=== PATIENT | male | born 1960 | race Caucasian/White ===

== ENCOUNTER 2019-05-31 12:08 | Emergency (ER) | payer BC ==
[2019-05-31 12:21] VITALS: TEMP 97.9
[2019-05-31] MEDS ORDERED: SODIUM CHLORIDE 0.9% 1,000 ML IV STA (12:36)
[2019-05-31] MEDS ORDERED: MECLIZINE 12.5 MG TAB PO STA (12:38)
--- NOTE | 2019-05-31 12:44 | ED ---
Dizziness HPI - General Chief Complaint: Dizziness Stated Complaint: dizziness-sent by [facility] Time Seen by Provider: 05/31/19 12:22 Source: patient, RN notes reviewed Mode of arrival: ambulatory Limitations: no limitations - History of Present Illness Initial Comments: This is a 58-year-old male who states that he onset yesterday around 9 AM dizziness. He states he ONLY WITH A WORK FELT LIGHTHEADED AND WOOZY AND DIZZY INTERMITTENTLY EVER SINCE HIS DIZZY WHEN HE GETS UP FROM A SITTING POSITION NO OVERT DIZZINESS WITH MOVEMENT OF HIS HEAD OR EYES. HE DOES HAVE A HISTORY OF RECENT UPPER RESPIRATORY CONGESTION AND HAS SOME NAUSEA HE JUST GENERALLY DOES NOT FEEL WELL. MD Complaint: dizziness, lightheadedness, near syncope - Related Data Previous Rx's Medication Instructions Recorded Meclizine [Antivert] 25 mg PO TID #20 tab 05/31/19 Allergies Allergy/AdvReac Type Severity Reaction Status Date / Time poison raciel extract Allergy Rash/Hives Verified 05/31/19 12:37 strawberry Allergy Rash/Hives Verified 05/31/19 12:37 hydrocodone AdvReac Confusion Verified 05/31/19 12:37 Review of Systems ROS Statement: Those systems with pertinent positive or pertinent negative responses have been documented in the HPI. ROS Other: All systems not noted in ROS Statement are negative. Past Medical History Past Medical History: No Reported History History of Any Multi-Drug Resistant Organisms: None Reported Past Surgical History: No Surgical Hx Reported, Orthopedic Surgery Additional Past Surgical History / Comment(s): elbow Past Psychological History: No Psychological Hx Reported Smoking Status: Never smoker Past Alcohol Use History: None Reported Past Drug Use History: None Reported General Exam - General Exam Comments Initial Comments: This is a well-developed well-nourished awake alert oriented times 3 male Limitations: no limitations General appearance: alert, in no apparent distress Head exam: Present: atraumatic, normocephalic, normal inspection Eye exam: Present: normal appearance, PERRL, EOMI. Absent: scleral icterus, conjunctival injection, periorbital swelling ENT exam: Present: mucous membranes moist, TM's normal bilaterally, other (Boggy congested nasal mucosa) Neck exam: Present: normal inspection, full ROM, other (No stridor JVD or bruits). Absent: tenderness, meningismus, lymphadenopathy Respiratory exam: Present: normal lung sounds bilaterally. Absent: respiratory distress, wheezes, rales, rhonchi, stridor Cardiovascular Exam: Present: regular rate, normal rhythm, normal heart sounds. Absent: systolic murmur, diastolic murmur, rubs, gallop, clicks GI/Abdominal exam: Present: soft, normal bowel sounds. Absent: distended, tenderness, guarding, rebound, rigid Extremities exam: Present: normal inspection, full ROM, normal capillary refill. Absent: tenderness, pedal edema, joint swelling, calf tenderness Back exam: Present: normal inspection Neurological exam: Present: alert, oriented X3, CN II-XII intact Psychiatric exam: Present: normal affect, normal mood Skin exam: Present: warm, dry, intact, normal color. Absent: rash Course Vital Signs 05/31/19 05/31/19 12:17 13:06 Temperature 97.9 F Pulse Rate 61 Pulse Rate [ 58 L Right Sitting Pulse Oximetery ] Pulse Rate [ 72 Right Standing Pulse Oximetery ] Pulse Rate [ 56 L Right Supine Pulse Oximetery ] Respiratory 18 Rate Blood Pressure 131/90 Blood Pressure 141/91 [Right Arm Sitting] Blood Pressure 136/99 [Right Arm Standing] Blood Pressure 136/88 [Right Arm Supine] O2 Sat by Pulse 100 Oximetry EKG Findings - EKG Results: EKG: interpreted by MARCUS, sinus rhythm (Says bradycardia 54 AR interval 134, QRS 72 QTC 436/413 this is compared to one done on 11/08/[address] Matthews's office.) Medical Decision Making - Medical Decision Making Patient initially much improved this time. I did discuss findings with him the presentation consistent with benign positional vertigo. 3 place on appropriate medication - Lab Data Result diagrams: 05/31/19 12:54 05/31/19 12:54 Lab Results 05/31/19 05/31/19 05/31/19 Range/Units 12:54 12:54 12:54 WBC 5.2 (3.8-10.6) k/uL RBC 4.96 (4.30-5.90) m/uL Hgb 15.7 (13.0-17.5) gm/dL Hct 45.6 (39.0-53.0) % MCV 92.0 (80.0-100.0) fL MCH 31.8 (25.0-35.0) pg MCHC 34.5 (31.0-37.0) g/dL RDW 13.0 (11.5-15.5) % Plt Count 277 (150-450) k/uL Neutrophils % 69 % Lymphocytes % 22 % Monocytes % 5 % Eosinophils % 2 % Basophils % 1 % Neutrophils # 3.6 (1.3-7.7) k/uL Lymphocytes # 1.1 (1.0-4.8) k/uL Monocytes # 0.2 (0-1.0) k/uL Eosinophils # 0.1 (0-0.7) k/uL Basophils # 0.0 (0-0.2) k/uL Sodium 142 (137-145) mmol/L Potassium 4.2 (3.5-5.1) mmol/L Chloride 104 (98-107) mmol/L Carbon Dioxide 30 (22-30) mmol/L Anion Gap 8 mmol/L BUN 16 (9-20) mg/dL Creatinine 0.94 (0.66-1.25) mg/dL Est GFR (CKD-EPI)AfAm >90 (>60 ml/min/1.73 sqM) Est GFR (CKD-EPI)NonAf >90 (>60 ml/min/1.73 sqM) Glucose 92 (74-99) mg/dL Calcium 9.6 (8.4-10.2) mg/dL Magnesium 2.4 H (1.6-2.3) mg/dL Total Bilirubin 1.3 (0.2-1.3) mg/dL AST 28 (17-59) U/L ALT 41 (21-72) U/L Alkaline Phosphatase 77 (38-126) U/L Troponin I <0.012 (0.000-0.034) ng/mL Total Protein 7.7 (6.3-8.2) g/dL Albumin 4.7 (3.5-5.0) g/dL Lipase 127 (23-300) U/L TSH 0.784 (0.465-4.680) mIU/L Disposition Clinical Impression: Benign paroxysmal positional vertigo Disposition: HOME SELF-CARE Condition: Good Instructions (If sedation given, give patient instructions): Dizziness (ED), Benign Paroxysmal Positional Vertigo (ED) Additional Instructions: Prescriptions sent to [facility] pharmacy Prescriptions: Meclizine [Antivert] 25 mg PO TID #20 tab Is patient prescribed a controlled substance at d/c from ED?: No Referrals: Janna Matthews MD [Primary Care Provider] - 1-2 days
[2019-05-31 13:29] LABS: Basophils % (A) 1 %; Eosinophils # (A) 0.1 k/uL (0-0.7); Eosinophils % (A) 2 %; HCT 45.6 % (39.0-53.0); HGB 15.7 gm/dL (13.0-17.5); Lymphocytes # (A) 1.1 k/uL (1.0-4.8); Lymphocytes % (A) 22 %; MCH 31.8 pg (25.0-35.0); MCHC 34.5 g/dL (31.0-37.0); Monocytes # (A) 0.2 k/uL (0-1.0); Monocytes % (A) 5 %; Neutrophils # (A) 3.6 k/uL (1.3-7.7); Neutrophils % (A) 69 %; Platelet Count 277 k/uL (150-450); RBC 4.96 m/uL (4.30-5.90); WBC 5.2 k/uL (3.8-10.6)
[2019-05-31 13:35] LABS: ALT 41 U/L (21-72); AST 28 U/L (17-59); African American GFR (CKD) >90 (>60 ml/min/1.73 sqM); Albumin 4.7 g/dL (3.5-5.0); Alkaline Phosphatase 77 U/L (38-126); Anion Gap 8 mmol/L; Blood Urea Nitrogen 16 mg/dL (9-20); Calcium 9.6 mg/dL (8.4-10.2); Carbon Dioxide 30 mmol/L (22-30); Chloride 104 mmol/L (98-107); Glucose 92 mg/dL (74-99); Magnesium 2.4 mg/dL (1.6-2.3); Potassium 4.2 mmol/L (3.5-5.1); Sodium 142 mmol/L (137-145); Total Bilirubin 1.3 mg/dL (0.2-1.3); Total Protein 7.7 g/dL (6.3-8.2)
[2019-05-31 14:55] VITALS: BP 136/76; PULSE 60; RESP 16
[2019-05-31 15:13] LABS: Appearance,Urine Clear (Clear); Bilirubin,Urine Negative (Negative); Blood,Urine Negative (Negative); Color,Urine Yellow; Glucose,Urine (UA) Negative (Negative); Ketones,Urine Negative (Negative); Leukocyte Esterase,Urine Negative (Negative); Nitrite,Urine Negative (Negative); Protein,Urine Trace (Negative); Specific Gravity,Urine 1.024 (1.001-1.035); Urobilinogen,Urine <2.0 mg/dL (<2.0)
== END 2019-05-31 14:53 | disposition home or self-care (01) ==
LOC: EC 12:08
DX: H81.10 Benign paroxysmal vertigo, unspecified ear (principal); Z91.018 Allergy to other foods; Z91.048 Other nonmedicinal substance allergy status; Z88.5 Allergy status to narcotic agent
CPT/HCPCS: 36415; 80053; 81003; 83690; 83735; 84443; 84484; 85025; 93005; 96360; 96361; 99284